=== PATIENT | female | born 1965 | race Caucasian/White ===

== ENCOUNTER 2017-08-08 16:26 | Observation (INO) | payer OTHER ==
[~2017-08-08] VITALS: Ht 167.6 cm; Wt 85.0 kg
[~2017-08-08 16:26] MED LIST: ASPI81TA28 PO; BIOTCAP2 PO; CHOL1000 PO; LEVO100T84 PO; MAGN250T3 PO; MULT-506 PO; SPIR100T PO
[2017-08-08] MEDS ORDERED: ASPIRIN 81 MG CHEW PO STA (16:53)
[2017-08-08] MEDS ORDERED: NITROGLYCERIN 0.4 MG SL PER TAB CHARGE SL PRN ×2 (17:00→19:30)
[2017-08-08 17:03] LABS: HEMATOCRIT 43.4 % (37-47); MEAN CORPUSCULAR HEMOGLOBIN 33.5 pg (25-34); MEAN CORPUSCULAR HGB CONC 35.3 g/dl (32-36); MEAN PLATELET VOLUME 9.8 fL (7.4-10.4); PLATELET COUNT 269 K/uL (130-400); RED BLOOD COUNT 4.57 M/uL (4.2-5.4); WHITE BLOOD COUNT 8.86 K/uL (4.8-10.8)
[2017-08-08] MEDS ORDERED: CLIN150C PO (17:03)
[2017-08-08] MEDS ORDERED: BIOT1TAB7 PO (17:03)
[2017-08-08] MEDS ORDERED: MAGN1CAP2 PO (17:03)
[2017-08-08] MEDS ORDERED: LEVO100T7 PO (17:03)
[2017-08-08 17:28] LABS: BLOOD UREA NITROGEN 26 mg/dl (7-18); BUN/CREATININE RATIO 21.8 (10-20); CALCIUM 9.7 mg/dl (8.5-10.1); CARBON DIOXIDE 31 mmol/L (21-32); CHLORIDE 101 mmol/L (98-107); GLUCOSE 95 mg/dl (70-99); POTASSIUM 4.1 mmol/L (3.5-5.1); SODIUM 137 mmol/L (136-145)
[2017-08-08] MEDS ORDERED: OPTIRAY 320 IV PRN (17:30)
[2017-08-08 17:33] LABS: CKMB/CK RATIO 0.8 (0-3.0)
--- NOTE | 2017-08-08 18:14 | DIAGNOSTIC IMAGING REPORT ---
(CHEST FOR PE) ANGIO WITH CLINICAL HISTORY: 52 years-old Female presenting with shortness of breath, chest pain, history of blood clot in the right lower leg, recent travel history. TECHNIQUE: Multidetector CT angiography of the chest was performed after administration of intravenous contrast. 3-D volumetric and/or maximum intensity projection (MIP) images were subsequently reconstructed for review. IV contrast: 90 mL of Optiray 320. A dose lowering technique was used consistent with the principles of ALARA (as low as reasonably achievable). COMPARISON: None. CT DOSE (mGy.cm): The estimated cumulative dose is 265.67 mGy.cm. FINDINGS: Cover Cutter topogram: Unremarkable. Pulmonary vasculature: The study is adequate for assessment of the pulmonary vascular tree. No filling defect within the pulmonary arteries to suggest embolus. Main pulmonary artery is not enlarged. No flattening of the interventricular septum. No intracardiac intracardiac filling defect. No reflux of contrast into the hepatic veins. Remaining chest: On soft tissue windows, postsurgical changes of right thyroid lobectomy. No axillary, supraclavicular, hilar, or mediastinal lymphadenopathy. Normal aorta. Normal heart size. No pericardial or pleural effusion. Cholecystectomy clips noted. On lung windows, minimal dependent changes likely atelectasis. Solid subpleural 3 mm nodule in the right middle lobe (series 2 image 42). Airways patent. On bone windows, mild degenerative changes of the thoracic spine. IMPRESSION: 1. No evidence of pulmonary embolus. No acute intrathoracic pathology. 2. Solitary 3 mm solid pulmonary nodule in the right middle lobe. Follow-up per Adelina Society 2017 recommendations below. Please refer to below summary of Fleischner Society 2017 recommendations for follow-up of incidental CT nodules (H Nori et al. Guidelines for management of incidental pulmonary nodules detected on CT images: From the Fleischner Society 2017. Radiology 2017; 284: 228-243.) SOLID NODULES Single nodule; size < 6 mm * Low risk patients: No routine follow-up * High risk patients: Optional CT at 12 months Single nodule; size 6-8 mm * Low risk patients: CT at 6-12 months, then consider CT at 18-24 months * High risk patients: CT at 6-12 months, then at 18-24 months Single nodule; size > 8 mm * Either low or high risk patients: Considered CT at 3 months, PET/CT, or tissue sampling Multiple nodules; size < 6 mm * Low risk patients: No routine follow up * High risk patients: Optional CT at 12 months Multiple nodules; size 6-8 mm * Low risk patients: CT at 3-6 months, then consider CT at 18-24 months * High risk patients: CT at 3-6 months, then at 18-24 months Multiple nodules; size > 8 mm * Low risk patients: CT at 3-6 months, then consider at 18-24 months * High risk patients: CT at 3-6 months, then at 18-24 months Note: These guidelines apply to incidental nodules. These guidelines do not apply to patients younger than 35 years, immunocompromised patients, or patients with cancer. * Low risk patients: Minimal or absent history of smoking and/or other known risk factors * High risk patients: History of smoking, exposure to other carcinogens, emphysema, fibrosis, upper lobe location, family history of lung cancer, etc. * If a nodule up to 8 mm is partly solid or is ground glass, further follow-up is required after 24 months to exclude possible slow growing adenocarcinoma. SUBSOLID NODULES Single ground-glass nodule * Nodule size < 6 mm: No routine follow-up * Nodule size > or = 6 mm: CT at 6-12 months to confirm persistence, then CT every 2 years until 5 years Single part-solid nodule * Nodule size < 6 mm: No routine follow-up * Nodules size > or = 6 mm: CT at 3-6 months to confirm persistence. If unchanged and solid component remains < 6 mm, annual CT should be performed for 5 years Multiple nodules * Nodule size < 6 mm: CT at 3-6 months. If stable, consider CT at 2 and 4 years. * Nodules size > or = 6 mm: CT at 3-6 months. Subsequent management based on the most suspicious nodule(s) Electronically signed by: Phillip Hutson M.D. 08/08/2017 6:12 PM Dictated Date/Time: 08/08/2017 6:07 PM
--- NOTE | 2017-08-08 18:38 | DIAGNOSTIC IMAGING REPORT ---
CHEST ONE VIEW PORTABLE CLINICAL HISTORY: 52 years-old Female presenting with Chest Pain. TECHNIQUE: Portable upright AP view of the chest was obtained. COMPARISON: None. FINDINGS: Cardiomediastinal silhouette normal. Lungs and pleural spaces clear. Osseous structures normal. Upper abdomen normal. IMPRESSION: 1. No acute cardiopulmonary disease. Electronically signed by: Phillip Hutson M.D. 08/08/2017 6:36 PM Dictated Date/Time: 08/08/2017 6:36 PM
[2017-08-08 18:44] LABS: BASO % 0.3 %; BASO ABS # 0.03 K/uL (0-0.2); EOS % 4.5 %; IG% 0.2 %; LYMPH ABS # 2.83 K/uL (1.2-3.4); MONO % 9.5 %; NEUT % 54.5 %
[2017-08-08 18:59] LABS: COMPLETE YES
[2017-08-08 19:27] VITALS: Ht 167.6 cm; Wt 85.0 kg
[2017-08-08] MEDS ORDERED: POLYETHYLENE (MIRALAX) 17 GM PACK PO PRN (19:30)
[2017-08-08] MEDS ORDERED: ACETAMINOPHEN 325 MG TAB PO PRN (19:30)
[2017-08-08] MEDS ORDERED: ONDANSETRON INJ 2 MG/ML 2 ML VIAL IV PRN (19:30)
[2017-08-08] MEDS ORDERED: MoRPHine SULFATE 2 MG/ML CARP IV PRN (19:30)
[2017-08-08] MEDS ORDERED: MoRPHine SULFATE 2 MG/ML CARP IV STA (20:14)
--- NOTE | 2017-08-08 20:27 | History and Physical ---
History & Physical Date & Time of Service: Aug 08, 2017 at 20:16 Chief Complaint: Short Of Breath, Chest Pain Primary Care Physician: Landry Leonardo M.D. History of Present Illness Source: patient, clinic records, hospital records 52 yo F presents with chest pain that is worse with taking a deep breath. The pain has been intermittent since Fri morning and started after some nausea that she had. The pain appears to have gotten somewhat worse but doesn't seem to change with food, changes in position, or exertion. She has not been limited in her activities, but has noted that she has not been doing as much as she normally does. She describes the pain as sharp and located behind her R and L clavicles with the L side moving through to her back. She has had some associated diaphoresis with the pain and the nausea has not persisted but was there initially. She also reports some intermittent lightheadedness. She takes an aspirin daily. She does not have a history of tobacco use or hypertension; she takes spironolactone for control of hirsutism. She has a family history of her father having his first MO at age 50 yrs and dying from an MO at 62 yo. She denies a h/o chest pain except for once last year--an EKG was done at the time. She has never had a stress test in the past. She reports having pain from a toothache and was put on Cleocin starting Thurs. She states she has some pain from the toothache but denies fevers and chills. She takes Motrin PRN. There are plans to have the tooth pulled later this week. CTA was negative for PE in the ER. Past Medical/Surgical History Medical Problems: (1) DEPRESSIVE DISORDER NEC Status: Chronic (2) Hirsutism Status: Chronic (3) OVARIAN CYST NEC/NOS Status: Chronic Surgical Problems: (1) H/O tubal ligation Status: Chronic (2) S/P appy Status: Chronic (3) S/P cholecystectomy Status: Chronic Family History FH: cancer FH: gallbladder disease FH: heart disease FH: hypertension FHx: diabetes mellitus Social History Smoking Status: Never Smoker Smokeless Tobacco Use: No Alcohol Use: socially Drug Use: none Marital Status: in relationship Housing status: lives with significant other Occupational Status: employed Immunizations History of Influenza Vaccine: No History of Tetanus Vaccine?: Yes History of Pneumococcal: No History of Hepatitis B Vaccine: Yes Multi-Drug Resistant Organisms History of MDRO: No Allergies Coded Allergies: Penicillins (Verified Allergy, Unknown, FEVER, 05/13/16) Sulfa Antibiotics (Verified Allergy, Unknown, FEVER, 05/13/16) Home Medications Scheduled Aspirin (Aspirin Ec), 81 MG PO QAM Biotin (Biotin Maximum Strength), 10,000 MCG PO QAM Cholecalciferol (Vitamin D3), 1,000 INTER.UNIT PO QAM Clindamycin Hcl (Cleocin), 150 MG PO QID Levothyroxine Sodium (Levothyroxine Sodium), 100 MG PO QAM Magnesium Oxide (Mg Supplement (Magnesium), 1,200 MG PO QAM Multivitamin (Multivitamin), 1 TAB PO QAM Spironolactone (Aldactone), 100 MG PO QAM Review of Systems At least ten systems were reviewed and negative except as indicated in HPI. Physical Exam Vital Signs Date Time Temp Pulse Resp B/P (MAP) Pulse Ox O2 Delivery O2 Flow Rate FiO2 08/08/17 19:27 Room Air 08/08/17 19:12 86 18 113/61 99 Room Air 08/08/17 18:04 78 18 113/63 98 Room Air 08/08/17 17:20 74 08/08/17 17:03 93 20 114/69 08/08/17 16:33 36.7 86 20 121/65 100 Room Air General Appearance: WD/WN, no apparent distress Head: normocephalic, atraumatic Eyes: normal inspection, PERRL, sclerae normal ENT: hearing grossly normal, pharynx normal Neck: supple, no adenopathy, no JVD, trachea midline Respiratory/Chest: lungs clear, normal breath sounds, no respiratory distress, no accessory muscle use, + pertinent finding (mild TTP on R anterior chest wall) Cardiovascular: regular rate, rhythm, no edema, no gallop, no JVD, no murmur, normal peripheral pulses Abdomen/GI: normal bowel sounds, non tender, soft Back: normal inspection Extremities/Musculoskelatal: normal inspection Neurologic/Psych: no motor/sensory deficits, alert, normal mood/affect, oriented x 3 Skin: normal color, warm/dry, no rash Diagnostics Laboratory Results 08/08/17 16:50 Red Blood Count 4.57, Mean Corpuscular Volume 95.0, Mean Corpuscular Hemoglobin 33.5, Mean Corpuscular Hemoglobin Concent 35.3, Mean Platelet Volume 9.8, Neutrophils (%) (Auto) 54.5, Lymphocytes (%) (Auto) 31.0, Monocytes (%) (Auto) 9.5, Eosinophils (%) (Auto) 4.5, Basophils (%) (Auto) 0.3, Neutrophils # (Auto) 4.96, Lymphocytes # (Auto) 2.83, Monocytes # (Auto) 0.87, Eosinophils # (Auto) 0.41, Basophils # (Auto) 0.03 08/08/17 16:50 Test 08/08/17 16:50 08/08/17 20:14 White Blood Count 8.86 K/uL (4.8-10.8) Red Blood Count 4.57 M/uL (4.2-5.4) Hemoglobin 15.3 g/dL (12.0-16.0) Hematocrit 43.4 % (37-47) Mean Corpuscular Volume 95.0 fL (80-100) Mean Corpuscular Hemoglobin 33.5 pg (25-34) Mean Corpuscular Hemoglobin Concent 35.3 g/dl (32-36) Platelet Count 269 K/uL (130-400) Mean Platelet Volume 9.8 fL (7.4-10.4) Neutrophils (%) (Auto) 54.5 % Lymphocytes (%) (Auto) 31.0 % Monocytes (%) (Auto) 9.5 % Eosinophils (%) (Auto) 4.5 % Basophils (%) (Auto) 0.3 % Neutrophils # (Auto) 4.96 K/uL (1.4-6.5) Lymphocytes # (Auto) 2.83 K/uL (1.2-3.4) Monocytes # (Auto) 0.87 K/uL (0.11-0.59) Eosinophils # (Auto) 0.41 K/uL (0-0.5) Basophils # (Auto) 0.03 K/uL (0-0.2) RDW Standard Deviation 44.2 fL (36.4-46.3) RDW Coefficient of Variation 12.8 % (11.5-14.5) Immature Granulocyte % (Auto) 0.2 % Immature Granulocyte # (Auto) 0.02 K/uL (0.00-0.02) Red Blood Cell Morphology Unremarkable Anion Gap 5.0 mmol/L (3-11) Est Creatinine Clear Calc Drug Dose 58.8 ml/min Estimated GFR () 59.3 Estimated GFR (Non- 51.2 BUN/Creatinine Ratio 21.8 (10-20) Calcium Level 9.7 mg/dl (8.5-10.1) Total Creatine Kinase 98 U/L (26-192) Creatine Kinase MB 0.8 ng/ml (0.5-3.6) Creatine Kinase MB Ratio 0.8 (0-3.0) Troponin I < 0.015 ng/ml (0-0.045) Results Past 24 Hours Test 08/08/17 16:50 08/08/17 20:14 Range/Units White Blood Count 8.86 4.8-10.8 K/uL Red Blood Count 4.57 4.2-5.4 M/uL Hemoglobin 15.3 12.0-16.0 g/dL Hematocrit 43.4 37-47 % Mean Corpuscular Volume 95.0 80-100 fL Mean Corpuscular Hemoglobin 33.5 25-34 pg Mean Corpuscular Hemoglobin Concent 35.3 32-36 g/dl Platelet Count 269 130-400 K/uL Mean Platelet Volume 9.8 7.4-10.4 fL Neutrophils (%) (Auto) 54.5 % Lymphocytes (%) (Auto) 31.0 % Monocytes (%) (Auto) 9.5 % Eosinophils (%) (Auto) 4.5 % Basophils (%) (Auto) 0.3 % Neutrophils # (Auto) 4.96 1.4-6.5 K/uL Lymphocytes # (Auto) 2.83 1.2-3.4 K/uL Monocytes # (Auto) 0.87 0.11-0.59 K/uL Eosinophils # (Auto) 0.41 0-0.5 K/uL Basophils # (Auto) 0.03 0-0.2 K/uL RDW Standard Deviation 44.2 36.4-46.3 fL RDW Coefficient of Variation 12.8 11.5-14.5 % Immature Granulocyte % (Auto) 0.2 % Immature Granulocyte # (Auto) 0.02 0.00-0.02 K/uL Red Blood Cell Morphology Unremarkable Sodium Level 137 136-145 mmol/L Potassium Level 4.1 3.5-5.1 mmol/L Chloride Level 101 98-107 mmol/L Carbon Dioxide Level 31 21-32 mmol/L Anion Gap 5.0 3-11 mmol/L Blood Urea Nitrogen 26 7-18 mg/dl Creatinine 1.20 0.60-1.20 mg/dl Est Creatinine Clear Calc Drug Dose 58.8 ml/min Estimated GFR () 59.3 Estimated GFR (Non- 51.2 BUN/Creatinine Ratio 21.8 10-20 Random Glucose 95 70-99 mg/dl Calcium Level 9.7 8.5-10.1 mg/dl Total Creatine Kinase 98 26-192 U/L Creatine Kinase MB 0.8 0.5-3.6 ng/ml Creatine Kinase MB Ratio 0.8 0-3.0 Troponin I < 0.015 0-0.045 ng/ml Diagnostic Radiology CHEST ONE VIEW PORTABLE CLINICAL HISTORY: 52 years-old Female presenting with Chest Pain. TECHNIQUE: Portable upright AP view of the chest was obtained. COMPARISON: None. FINDINGS: Cardiomediastinal silhouette normal. Lungs and pleural spaces clear. Osseous structures normal. Upper abdomen normal. IMPRESSION: 1. No acute cardiopulmonary disease. (CHEST FOR PE) ANGIO WITH CLINICAL HISTORY: 52 years-old Female presenting with shortness of breath, chest pain, history of blood clot in the right lower leg, recent travel history. TECHNIQUE: Multidetector CT angiography of the chest was performed after administration of intravenous contrast. 3-D volumetric and/or maximum intensity projection (MIP) images were subsequently reconstructed for review. IV contrast: 90 mL of Optiray 320. A dose lowering technique was used consistent with the principles of ALARA (as low as reasonably achievable). COMPARISON: None. CT DOSE (mGy.cm): The estimated cumulative dose is 265.67 mGy.cm. FINDINGS: Public Policy Professor topogram: Unremarkable. Pulmonary vasculature: The study is adequate for assessment of the pulmonary vascular tree. No filling defect within the pulmonary arteries to suggest embolus. Main pulmonary artery is not enlarged. No flattening of the interventricular septum. No intracardiac intracardiac filling defect. No reflux of contrast into the hepatic veins. Remaining chest: On soft tissue windows, postsurgical changes of right thyroid lobectomy. No axillary, supraclavicular, hilar, or mediastinal lymphadenopathy. Normal aorta. Normal heart size. No pericardial or pleural effusion. Cholecystectomy clips noted. On lung windows, minimal dependent changes likely atelectasis. Solid subpleural 3 mm nodule in the right middle lobe (series 2 image 42). Airways patent. On bone windows, mild degenerative changes of the thoracic spine. IMPRESSION: 1. No evidence of pulmonary embolus. No acute intrathoracic pathology. 2. Solitary 3 mm solid pulmonary nodule in the right middle lobe. Follow-up per Adelina Society 2017 recommendations below. EKG SR 95, no ST changes. Impression Assessment and Plan 52 yo F with no h/o CAD presents with chest pain since wednesday (2 dys) that is worse with taking a deep breath. 1. chest pain-risk factors for CAD include family history. ASA given in ER, nitro didn't help much. Morphine helped her breathe somewhat better. Possible but less likely there is any bacterial endocarditis from the tooth infection in the setting of no fevers, chills, ORELLANA or murmur on exam. However, a stress echo with resting images is considered. Cardiology consulted for assistance with this and risk stratification of CAD. 2. Pulm nodule-3mm in lifelong non-smoker. Very low risk, would either not follow it up or could opt to get a CT scan in 12 months per criteria. 3. Hypothyroidism-cont home Synthroid 4. Dental infection-patient remains on cleocin with plans for pulling the tooth later this week. DVT proph: Lovenox Full Code Dispo-tele Amber Coles DO [facility] Hospitalist Level of Care Telemetry Advanced Directives Existing Living Will: No Existing Power of Coil Shaper: No Resuscitation Status FULL RESUSCITATION VTE Prophylaxis VTE Risk Assessment Done? Y/N: Yes Risk Level: Moderate Given or contraindicated: Enoxaparin (Lovenox)SQ
[2017-08-08 20:47] LABS: PROTHROMBIN TIME (PATIENT) 10.6 SECONDS (9.0-12.0)
[2017-08-08 21:06] VITALS: BP 128/79; PULSE 70; TEMP 36.7; O2SAT 98
[2017-08-08] MEDS ORDERED: IV FLUIDS COMPLETED PRN (21:15)
[2017-08-08] MEDS: CLINDAMYCIN HCL 150 MG CAP PO SCH (21:41)
--- NOTE | 2017-08-08 22:06 | EMERGENCY ROOM VISIT NOTE ---
History Report prepared by Ari: Cliff Arriola Under the Supervision of: Dr. Raffaele Antonio D.O. First contact with patient: 16:46 Chief Complaint: CHEST PAIN Stated Complaint: SHORT OF BREATH, CHEST PAIN History of Present Illness The patient is a 52 year old female who presents to the Emergency Room with complaints of intermittent chest pain that started two days ago. She describes her pain as a sharp sensation that radiates to her arm. shoulder, and jaw intermittently. The patient admits that her pain is worsened with exertion. The patient states that she woke up two days ago and was experiencing nausea and dizziness. She reports that she then started to experience shortness of breath. The patient states that every time she tried to take a deep breath, she noticed she would experience chest pain. She reports that her chest pain is mostly with taking a deep breath but admits that it can be present without a deep breath at times. The patient states that her chest pain started again today when she woke up at 0645. She admits to a history of a cholecystectomy and blood clots that she takes blood thinners for. The patient denies a history of heart disease, asthma, COPD, hyperlipidemia, hypertension, and hyperlipidemia. She reports that she is currently on an antibiotic for a tooth infection. The patient denies recent travel, taking aspirin, cough, and sore throat. Source of History: patient Onset: two days ago Position: chest Quality: sharp Timing: intermittent Modifying Factors (Worsening): exertion, breathing Associated Symptoms: + SOB, + nausea, No sorethroat, No cough Review of Systems See HPI for pertinent positives & negatives. A total of 10 systems reviewed and were otherwise negative. Past Medical & Surgical Medical Problems: (1) Chest pain (2) DEPRESSIVE DISORDER NEC (3) OVARIAN CYST NEC/NOS Family History FH: cancer FH: gallbladder disease FH: heart disease FH: hypertension FHx: diabetes mellitus Social History Smoking Status: Never Smoker Alcohol Use: occasionally Drug Use: none Housing Status: lives with family Occupation Status: employed Current/Historical Medications Scheduled Aspirin (Aspirin Ec), 81 MG PO QAM Biotin (Biotin Maximum Strength), 10,000 MCG PO QAM Cholecalciferol (Vitamin D3), 1,000 INTER.UNIT PO QAM Clindamycin Hcl (Cleocin), 150 MG PO QID Levothyroxine Sodium (Levothyroxine Sodium), 100 MG PO QAM Magnesium Oxide (Mg Supplement (Magnesium), 1,200 MG PO QAM Multivitamin (Multivitamin), 1 TAB PO QAM Spironolactone (Aldactone), 100 MG PO QAM Allergies Coded Allergies: Penicillins (Verified Allergy, Unknown, FEVER, 05/13/16) Sulfa Antibiotics (Verified Allergy, Unknown, FEVER, 05/13/16) Physical Exam Vital Signs Date Time Temp Pulse Resp B/P (MAP) Pulse Ox O2 Delivery O2 Flow Rate FiO2 08/08/17 19:27 Room Air 08/08/17 19:12 86 18 113/61 99 Room Air 08/08/17 18:04 78 18 113/63 98 Room Air 08/08/17 17:20 74 08/08/17 17:03 93 20 114/69 08/08/17 16:33 36.7 86 20 121/65 100 Room Air Physical Exam GENERAL: sitting up in bed, anxious, no acute distress, non toxic. EYE EXAM: normal conjunctiva. OROPHARYNX: no exudate, no erythema, lips, buccal mucosa, and tongue normal and mucous membranes are moist NECK: supple, no nuchal rigidity, no adenopathy, non-tender LUNGS: Clear to auscultation. Normal chest wall mechanics HEART: no murmurs, S1 normal and S2 normal ABDOMEN: abdomen soft, non-tender, normo-active bowel sounds, no masses, no rebound or guarding. BACK: Back is symmetrical on inspection and there is no deformity, no midline tenderness, no CVA tenderness. SKIN: no rashes and no bruising UPPER EXTREMITIES: upper extremities are grossly normal. Pulses are equal bilaterally. LOWER EXTREMITIES: No pitting edema. Calves are equal bilaterally. NEURO EXAM: Normal sensorium, cranial nerves II-XII grossly intact, normal speech, no gross weakness of arms, no gross weakness of legs. Medical Decision & Procedures ER Provider Diagnostic Interpretation: Radiology results as stated below per my review and the radiologist's interpretation: (CHEST FOR PE) ANGIO WITH CLINICAL HISTORY: 52 years-old Female presenting with shortness of breath, chest pain, history of blood clot in the right lower leg, recent travel history. TECHNIQUE: Multidetector CT angiography of the chest was performed after administration of intravenous contrast. 3-D volumetric and/or maximum intensity projection (MIP) images were subsequently reconstructed for review. IV contrast: 90 mL of Optiray 320. A dose lowering technique was used consistent with the principles of ALARA (as low as reasonably achievable). COMPARISON: None. CT DOSE (mGy.cm): The estimated cumulative dose is 265.67 mGy.cm. FINDINGS: Diabetes Nurse topogram: Unremarkable. Pulmonary vasculature: The study is adequate for assessment of the pulmonary vascular tree. No filling defect within the pulmonary arteries to suggest embolus. Main pulmonary artery is not enlarged. No flattening of the interventricular septum. No intracardiac intracardiac filling defect. No reflux of contrast into the hepatic veins. Remaining chest: On soft tissue windows, postsurgical changes of right thyroid lobectomy. No axillary, supraclavicular, hilar, or mediastinal lymphadenopathy. Normal aorta. Normal heart size. No pericardial or pleural effusion. Cholecystectomy clips noted. On lung windows, minimal dependent changes likely atelectasis. Solid subpleural 3 mm nodule in the right middle lobe (series 2 image 42). Airways patent. On bone windows, mild degenerative changes of the thoracic spine. IMPRESSION: 1. No evidence of pulmonary embolus. No acute intrathoracic pathology. 2. Solitary 3 mm solid pulmonary nodule in the right middle lobe. Follow-up per Adelina Society 2017 recommendations below. Please refer to below summary of Fleischner Society 2017 recommendations for follow-up of incidental CT nodules (H Nori et al. Guidelines for management of incidental pulmonary nodules detected on CT images: From the Fleischner Society 2017. Radiology 2017; 284: 228-243.) SOLID NODULES Single nodule; size < 6 mm * Low risk patients: No routine follow-up * High risk patients: Optional CT at 12 months Single nodule; size 6-8 mm * Low risk patients: CT at 6-12 months, then consider CT at 18-24 months * High risk patients: CT at 6-12 months, then at 18-24 months Single nodule; size > 8 mm * Either low or high risk patients: Considered CT at 3 months, PET/CT, or tissue sampling Multiple nodules; size < 6 mm * Low risk patients: No routine follow up * High risk patients: Optional CT at 12 months Multiple nodules; size 6-8 mm * Low risk patients: CT at 3-6 months, then consider CT at 18-24 months * High risk patients: CT at 3-6 months, then at 18-24 months Multiple nodules; size > 8 mm * Low risk patients: CT at 3-6 months, then consider at 18-24 months * High risk patients: CT at 3-6 months, then at 18-24 months Note: These guidelines apply to incidental nodules. These guidelines do not apply to patients younger than 35 years, immunocompromised patients, or patients with cancer. * Low risk patients: Minimal or absent history of smoking and/or other known risk factors * High risk patients: History of smoking, exposure to other carcinogens, emphysema, fibrosis, upper lobe location, family history of lung cancer, etc. * If a nodule up to 8 mm is partly solid or is ground glass, further follow-up is required after 24 months to exclude possible slow growing adenocarcinoma. SUBSOLID NODULES Single ground-glass nodule * Nodule size < 6 mm: No routine follow-up * Nodule size > or = 6 mm: CT at 6-12 months to confirm persistence, then CT every 2 years until 5 years Single part-solid nodule * Nodule size < 6 mm: No routine follow-up * Nodules size > or = 6 mm: CT at 3-6 months to confirm persistence. If unchanged and solid component remains < 6 mm, annual CT should be performed for 5 years Multiple nodules * Nodule size < 6 mm: CT at 3-6 months. If stable, consider CT at 2 and 4 years. * Nodules size > or = 6 mm: CT at 3-6 months. Subsequent management based on the most suspicious nodule(s) Electronically signed by: Phillip Hutson M.D. 08/08/2017 6:12 PM Dictated Date/Time: 08/08/2017 6:07 PM CHEST ONE VIEW PORTABLE CLINICAL HISTORY: 52 years-old Female presenting with Chest Pain. TECHNIQUE: Portable upright AP view of the chest was obtained. COMPARISON: None. FINDINGS: Cardiomediastinal silhouette normal. Lungs and pleural spaces clear. Osseous structures normal. Upper abdomen normal. IMPRESSION: 1. No acute cardiopulmonary disease. Electronically signed by: Phillip Hutson M.D. 08/08/2017 6:36 PM Dictated Date/Time: 08/08/2017 6:36 PM Laboratory Results 08/08/17 16:50 Red Blood Count 4.57, Mean Corpuscular Volume 95.0, Mean Corpuscular Hemoglobin 33.5, Mean Corpuscular Hemoglobin Concent 35.3, Mean Platelet Volume 9.8, Neutrophils (%) (Auto) 54.5, Lymphocytes (%) (Auto) 31.0, Monocytes (%) (Auto) 9.5, Eosinophils (%) (Auto) 4.5, Basophils (%) (Auto) 0.3, Neutrophils # (Auto) 4.96, Lymphocytes # (Auto) 2.83, Monocytes # (Auto) 0.87, Eosinophils # (Auto) 0.41, Basophils # (Auto) 0.03 08/08/17 16:50 Test 08/08/17 16:50 White Blood Count 8.86 K/uL (4.8-10.8) Red Blood Count 4.57 M/uL (4.2-5.4) Hemoglobin 15.3 g/dL (12.0-16.0) Hematocrit 43.4 % (37-47) Mean Corpuscular Volume 95.0 fL (80-100) Mean Corpuscular Hemoglobin 33.5 pg (25-34) Mean Corpuscular Hemoglobin Concent 35.3 g/dl (32-36) Platelet Count 269 K/uL (130-400) Mean Platelet Volume 9.8 fL (7.4-10.4) Neutrophils (%) (Auto) 54.5 % Lymphocytes (%) (Auto) 31.0 % Monocytes (%) (Auto) 9.5 % Eosinophils (%) (Auto) 4.5 % Basophils (%) (Auto) 0.3 % Neutrophils # (Auto) 4.96 K/uL (1.4-6.5) Lymphocytes # (Auto) 2.83 K/uL (1.2-3.4) Monocytes # (Auto) 0.87 K/uL (0.11-0.59) Eosinophils # (Auto) 0.41 K/uL (0-0.5) Basophils # (Auto) 0.03 K/uL (0-0.2) RDW Standard Deviation 44.2 fL (36.4-46.3) RDW Coefficient of Variation 12.8 % (11.5-14.5) Immature Granulocyte % (Auto) 0.2 % Immature Granulocyte # (Auto) 0.02 K/uL (0.00-0.02) Red Blood Cell Morphology Unremarkable Prothrombin Time 10.6 SECONDS (9.0-12.0) Prothromb Time International Ratio 1.0 (0.9-1.1) Anion Gap 5.0 mmol/L (3-11) Est Creatinine Clear Calc Drug Dose 58.8 ml/min Estimated GFR () 59.3 Estimated GFR (Non- 51.2 BUN/Creatinine Ratio 21.8 (10-20) Calcium Level 9.7 mg/dl (8.5-10.1) Total Creatine Kinase 98 U/L (26-192) Creatine Kinase MB 0.8 ng/ml (0.5-3.6) Creatine Kinase MB Ratio 0.8 (0-3.0) Troponin I < 0.015 ng/ml (0-0.045) Hepatitis C Antibody Screen NEG (NEG) Laboratory results per my review. Medications Administered Medications (Trade) Dose Ordered Sig/Nicolle Route Start Time Stop Time Status Last Admin Dose Admin Aspirin (Aspirin Chew) 324 mg NOW STAT PO 08/08/17 16:53 08/08/17 16:56 DC 08/08/17 17:02 324 MG Nitroglycerin (Nitrostat Tab) 0.4 mg Q5M PRN SL 08/08/17 17:00 08/08/17 20:35 DC 08/08/17 17:02 0.4 MG ECG Indication: chest pain Rate (beats per minute): 95 Rhythm: sinus rhythm Findings: no ectopy, other (Normal axis) ED Course ED COURSE: Vital signs were reviewed and showed normal The patients medical record was reviewed The above diagnostic studies were performed and reviewed. ED treatments and interventions as stated above. 1647: The patient was evaluated in room B12B. A complete history and physical examination was performed. 1818: I reevaluated the patinet and she reports that her chest pain is gone after the Nitroglycerin and her SOB is improved. 1840: I discussed the patients case with Dr. Castillo, [facility] Hospitalist. He understands the patients condition and agrees to accept the patient. The patient will be further evaluated. Medical Decision Differential diagnoses includes but is not limited to acute coronary syndrome, myocardial infarction, pericarditis, pulmonary embolus, aortic dissection, pneumonia, pneumothorax, musculoskeletal, shingles, esophageal. Patient is a 52-year-old female who presents to ER for intermittent chest pain and shortness of breath which has been present since this past Wednesday. She notes it is worse with exertion. Chest pain does have a pleuritic component. Previous history of PEs. CBC all BMP, LFTs and troponin was negative. As she was at a higher risk CT PE was performed which showed a pulmonary nodule but no clots. Patient was updated regards to this. Chest pain resolved with nitroglycerin. Shortness of breath has improved significantly. Patient was updated at bedside and admitted to internal medicine for a chest pain rule out. Medication Reconcilliation Current Medication List: was personally reviewed by me Blood Pressure Screening Patient's blood pressure: Normal blood pressure Consults Time Called: 1839 Consulting Physician: Dr. Castillo, [facility] Hospitalist Returned Call: 1839 I discussed the patients case with Dr. Castillo [facility] Hospitalist. He understands the patients condition and agrees to accept the patient. The patient will be further evaluated. Impression Primary Impression: Chest pain Additional Impression: Pulmonary nodule Scribe Attestation The scribe's documentation has been prepared under my direction and personally reviewed by me in its entirety. I confirm that the note above accurately reflects all work, treatment, procedures, and medical decision making performed by me. Departure Information Dispostion Being Evaluated By Hospitalist Referrals Landry Leonardo M.D. (PCP) Patient Instructions My [facility] Problem Qualifiers Primary Impression: Chest pain Chest pain type: unspecified Qualified Codes: R07.9 - Chest pain, unspecified
[2017-08-09] VITALS: O2SAT 95
[2017-08-09 00:13] VITALS: BP 93/59; PULSE 73; TEMP 36.8; O2SAT 94
[2017-08-09 04:47] VITALS: BP 99/63; PULSE 65; TEMP 36.9; O2SAT 97
[2017-08-09] MEDS ORDERED: LEVOTHYROXINE 100 MCG TAB PO SCH (06:30)
[2017-08-09 07:01] LABS: CKMB/CK RATIO 1.4 (0-3.0)
[2017-08-09 07:27] VITALS: BP 114/70; PULSE 75; TEMP 36.7; O2SAT 97
[2017-08-09] MEDS: CLINDAMYCIN HCL 150 MG CAP PO SCH ×3 (07:40→16:29)
[2017-08-09] MEDS ORDERED: SPIRONOLACTONE 100 MG TAB PO SCH (09:00)
[2017-08-09] MEDS ORDERED: CHOLECALCIFEROL 1000 INTER.UNIT TAB PO SCH (09:00)
[2017-08-09] MEDS ORDERED: ENOXAPARIN 40 MG/0.4 ML SYR SC SCH (09:00)
[2017-08-09] MEDS ORDERED: MULTIVITAMIN TAB PO SCH (09:00)
[2017-08-09] MEDS ORDERED: BIOTIN 10000 MCG PO SCH (09:00)
[2017-08-09] MEDS ORDERED: MAGNESIUM OXIDE 400 MG TAB PO SCH (09:00)
[2017-08-09] MEDS ORDERED: ASPIRIN 81 MG ECTAB PO SCH (09:00)
[2017-08-09 11:29] VITALS: BP 100/66; PULSE 68; TEMP 36.8; O2SAT 95
[2017-08-09 12:23] LABS: CKMB/CK RATIO 1.2 (0-3.0)
--- NOTE | 2017-08-09 16:43 | Progress Note ---
Internal Med Progress Note Date of Service: Aug 09, 2017. Provider Documentation: SUBJECTIVE: Patient seen and evaluated at bedside. had negative stress test. patient denies chest pain or shortness of breath. OBJECTIVE: Exam: General- no acute distress Eyes- EOMI ENT- no oral or nasal exudates Neck- midline trachea, no JVD Lungs-clear to auscultation bilaterally, no wheezing Heart- regular rate, no murmurs appreciated Abdomen- soft, nontender, + bowel sounds Extremities- no edema Neuro- alert and oriented x 3, no gross oral deficits ASSESSMENT & PLAN: CXR Cardiomediastinal silhouette normal. Lungs and pleural spaces clear. Osseous structures normal. Upper abdomen normal. CTA chest Building Surveyor topogram: Unremarkable. Pulmonary vasculature: The study is adequate for assessment of the pulmonary vascular tree. No filling defect within the pulmonary arteries to suggest embolus. Main pulmonary artery is not enlarged. No flattening of the interventricular septum. No intracardiac intracardiac filling defect. No reflux of contrast into the hepatic veins. Remaining chest: On soft tissue windows, postsurgical changes of right thyroid lobectomy. No axillary, supraclavicular, hilar, or mediastinal lymphadenopathy. Normal aorta. Normal heart size. No pericardial or pleural effusion. Cholecystectomy clips noted. On lung windows, minimal dependent changes likely atelectasis. Solid subpleural 3 mm nodule in the right middle lobe (series 2 image 42). Airways patent. On bone windows, mild degenerative changes of the thoracic spine. IMPRESSION: 1. No evidence of pulmonary embolus. No acute intrathoracic pathology. 2. Solitary 3 mm solid pulmonary nodule in the right middle lobe. Follow-up per Adelina Society 2017 recommendations below. Please refer to below summary of Fleischner Society 2017 recommendations for follow-up of incidental CT nodules (H Nori et al. Guidelines for management of incidental pulmonary nodules detected on CT images: From the Fleischner Society 2017. Radiology 2017; 284: 228-243.) SOLID NODULES Single nodule; size < 6 mm * Low risk patients: No routine follow-up * High risk patients: Optional CT at 12 months Single nodule; size 6-8 mm * Low risk patients: CT at 6-12 months, then consider CT at 18-24 months * High risk patients: CT at 6-12 months, then at 18-24 months Single nodule; size > 8 mm * Either low or high risk patients: Considered CT at 3 months, PET/CT, or tissue sampling Multiple nodules; size < 6 mm * Low risk patients: No routine follow up * High risk patients: Optional CT at 12 months Multiple nodules; size 6-8 mm * Low risk patients: CT at 3-6 months, then consider CT at 18-24 months * High risk patients: CT at 3-6 months, then at 18-24 months Multiple nodules; size > 8 mm * Low risk patients: CT at 3-6 months, then consider at 18-24 months * High risk patients: CT at 3-6 months, then at 18-24 months Note: These guidelines apply to incidental nodules. These guidelines do not apply to patients younger than 35 years, immunocompromised patients, or patients with cancer. * Low risk patients: Minimal or absent history of smoking and/or other known risk factors * High risk patients: History of smoking, exposure to other carcinogens, emphysema, fibrosis, upper lobe location, family history of lung cancer, etc. * If a nodule up to 8 mm is partly solid or is ground glass, further follow-up is required after 24 months to exclude possible slow growing adenocarcinoma. SUBSOLID NODULES Single ground-glass nodule * Nodule size < 6 mm: No routine follow-up * Nodule size > or = 6 mm: CT at 6-12 months to confirm persistence, then CT every 2 years until 5 years Single part-solid nodule * Nodule size < 6 mm: No routine follow-up * Nodules size > or = 6 mm: CT at 3-6 months to confirm persistence. If unchanged and solid component remains < 6 mm, annual CT should be performed for 5 years Multiple nodules * Nodule size < 6 mm: CT at 3-6 months. If stable, consider CT at 2 and 4 years. * Nodules size > or = 6 mm: CT at 3-6 months. Subsequent management based on the most suspicious nodule(s) Stress Test performed by cardiology 08/09/17 full report pending, was informed by cardiovascular technician conducting and interpreting stress test that there are no significant cardiac findings that will keep patient in hospital for further cardiac risk stratification. Diagnosis: 1) Atypical chest pain without cardiac causes; 2) Incidental Solitary 3 mm solid pulmonary nodule in the right middle lobe in a patient who denies smoking history Disposition: Discharge to home with no further changes to home medications. Follow up primary care 08/16/2017 3:00 PM Landry Leonardo MD Internal Medicine [facility]. Will defer to primary care doctor on whether patient requires repeat lung imaging in the future for the lung nodule. Vital Signs: Date Time Temp Pulse Resp B/P (MAP) Pulse Ox O2 Delivery O2 Flow Rate FiO2 08/09/17 12:00 Room Air 08/09/17 11:29 36.8 68 16 100/66 (77) 95 Room Air 08/09/17 08:00 Room Air 08/09/17 07:27 36.7 75 16 114/70 (85) 97 Room Air 08/09/17 04:47 36.9 65 16 99/63 (75) 97 Room Air 08/09/17 04:00 Room Air 08/09/17 00:13 36.8 73 16 93/59 (70) 94 Room Air 08/09/17 00:00 95 Room Air 08/09/17 00:00 Room Air 08/08/17 21:06 36.7 70 18 128/79 (95) 98 Room Air 08/08/17 20:30 76 18 85/46 97 Room Air 08/08/17 19:27 Room Air 08/08/17 19:12 86 18 113/61 99 Room Air 08/08/17 18:04 78 18 113/63 98 Room Air 08/08/17 17:20 74 08/08/17 17:03 93 20 114/69 Lab Results: Results Past 24 Hours Test 08/08/17 16:50 08/09/17 05:47 08/09/17 11:33 Range/Units White Blood Count 8.86 4.8-10.8 K/uL Red Blood Count 4.57 4.2-5.4 M/uL Hemoglobin 15.3 12.0-16.0 g/dL Hematocrit 43.4 37-47 % Mean Corpuscular Volume 95.0 80-100 fL Mean Corpuscular Hemoglobin 33.5 25-34 pg Mean Corpuscular Hemoglobin Concent 35.3 32-36 g/dl Platelet Count 269 130-400 K/uL Mean Platelet Volume 9.8 7.4-10.4 fL Neutrophils (%) (Auto) 54.5 % Lymphocytes (%) (Auto) 31.0 % Monocytes (%) (Auto) 9.5 % Eosinophils (%) (Auto) 4.5 % Basophils (%) (Auto) 0.3 % Neutrophils # (Auto) 4.96 1.4-6.5 K/uL Lymphocytes # (Auto) 2.83 1.2-3.4 K/uL Monocytes # (Auto) 0.87 0.11-0.59 K/uL Eosinophils # (Auto) 0.41 0-0.5 K/uL Basophils # (Auto) 0.03 0-0.2 K/uL RDW Standard Deviation 44.2 36.4-46.3 fL RDW Coefficient of Variation 12.8 11.5-14.5 % Immature Granulocyte % (Auto) 0.2 % Immature Granulocyte # (Auto) 0.02 0.00-0.02 K/uL Red Blood Cell Morphology Unremarkable Prothrombin Time 10.6 9.0-12.0 SECONDS Prothromb Time International Ratio 1.0 0.9-1.1 Sodium Level 137 136-145 mmol/L Potassium Level 4.1 3.5-5.1 mmol/L Chloride Level 101 98-107 mmol/L Carbon Dioxide Level 31 21-32 mmol/L Anion Gap 5.0 3-11 mmol/L Blood Urea Nitrogen 26 7-18 mg/dl Creatinine 1.20 0.60-1.20 mg/dl Est Creatinine Clear Calc Drug Dose 58.8 ml/min Estimated GFR () 59.3 Estimated GFR (Non- 51.2 BUN/Creatinine Ratio 21.8 10-20 Random Glucose 95 70-99 mg/dl Calcium Level 9.7 8.5-10.1 mg/dl Total Creatine Kinase 98 83 85 26-192 U/L Creatine Kinase MB 0.8 1.2 1.0 0.5-3.6 ng/ml Creatine Kinase MB Ratio 0.8 1.4 1.2 0-3.0 Troponin I < 0.015 < 0.015 < 0.015 0-0.045 ng/ml Hepatitis C Antibody Screen NEG NEG
--- NOTE | 2017-08-09 16:50 | Discharge Instructions ---
Discharge Instructions Date of Service Aug 09, 2017. Admission Reason for Admission: Chest Pain Discharge Discharge Diagnosis / Problem: atypical chest pain, lung nodule Discharge Goals Goal(s): Decrease discomfort Activity Recommendations Activity Limitations: resume your previous activity . Instructions / Follow-Up Instructions / Follow-Up CXR Cardiomediastinal silhouette normal. Lungs and pleural spaces clear. Osseous structures normal. Upper abdomen normal. CTA chest Clinic Coordinator topogram: Unremarkable. Pulmonary vasculature: The study is adequate for assessment of the pulmonary vascular tree. No filling defect within the pulmonary arteries to suggest embolus. Main pulmonary artery is not enlarged. No flattening of the interventricular septum. No intracardiac intracardiac filling defect. No reflux of contrast into the hepatic veins. Remaining chest: On soft tissue windows, postsurgical changes of right thyroid lobectomy. No axillary, supraclavicular, hilar, or mediastinal lymphadenopathy. Normal aorta. Normal heart size. No pericardial or pleural effusion. Cholecystectomy clips noted. On lung windows, minimal dependent changes likely atelectasis. Solid subpleural 3 mm nodule in the right middle lobe (series 2 image 42). Airways patent. On bone windows, mild degenerative changes of the thoracic spine. IMPRESSION: 1. No evidence of pulmonary embolus. No acute intrathoracic pathology. 2. Solitary 3 mm solid pulmonary nodule in the right middle lobe. Follow-up per Adelina Society 2017 recommendations below. Please refer to below summary of Fleischner Society 2017 recommendations for follow-up of incidental CT nodules (H Nori et al. Guidelines for management of incidental pulmonary nodules detected on CT images: From the Fleischner Society 2017. Radiology 2017; 284: 228-243.) SOLID NODULES Single nodule; size < 6 mm * Low risk patients: No routine follow-up * High risk patients: Optional CT at 12 months Single nodule; size 6-8 mm * Low risk patients: CT at 6-12 months, then consider CT at 18-24 months * High risk patients: CT at 6-12 months, then at 18-24 months Single nodule; size > 8 mm * Either low or high risk patients: Considered CT at 3 months, PET/CT, or tissue sampling Multiple nodules; size < 6 mm * Low risk patients: No routine follow up * High risk patients: Optional CT at 12 months Multiple nodules; size 6-8 mm * Low risk patients: CT at 3-6 months, then consider CT at 18-24 months * High risk patients: CT at 3-6 months, then at 18-24 months Multiple nodules; size > 8 mm * Low risk patients: CT at 3-6 months, then consider at 18-24 months * High risk patients: CT at 3-6 months, then at 18-24 months Note: These guidelines apply to incidental nodules. These guidelines do not apply to patients younger than 35 years, immunocompromised patients, or patients with cancer. * Low risk patients: Minimal or absent history of smoking and/or other known risk factors * High risk patients: History of smoking, exposure to other carcinogens, emphysema, fibrosis, upper lobe location, family history of lung cancer, etc. * If a nodule up to 8 mm is partly solid or is ground glass, further follow-up is required after 24 months to exclude possible slow growing adenocarcinoma. SUBSOLID NODULES Single ground-glass nodule * Nodule size < 6 mm: No routine follow-up * Nodule size > or = 6 mm: CT at 6-12 months to confirm persistence, then CT every 2 years until 5 years Single part-solid nodule * Nodule size < 6 mm: No routine follow-up * Nodules size > or = 6 mm: CT at 3-6 months to confirm persistence. If unchanged and solid component remains < 6 mm, annual CT should be performed for 5 years Multiple nodules * Nodule size < 6 mm: CT at 3-6 months. If stable, consider CT at 2 and 4 years. * Nodules size > or = 6 mm: CT at 3-6 months. Subsequent management based on the most suspicious nodule(s) Stress Test performed by cardiology 08/09/17 full report pending, was informed by promotional model conducting and interpreting stress test that there are no significant cardiac findings that will keep patient in hospital for further cardiac risk stratification. Diagnosis: 1) Atypical chest pain without cardiac causes; 2) Incidental Solitary 3 mm solid pulmonary nodule in the right middle lobe in a patient who denies smoking history Disposition: Discharge to home with no further changes to home medications. Follow up primary care 08/16/2017 3:00 PM Landry Leonardo MD Internal Medicine [facility]. Will defer to primary care doctor on whether patient requires repeat lung imaging in the future for the lung nodule. Current Hospital Diet Patient's current hospital diet: AHA Diet (Heart Healthy) Discharge Diet Recommended Diet: Regular Diet Pending Studies Studies pending at discharge: no Laboratory Results 08/08/17 16:50 Red Blood Count 4.57, Mean Corpuscular Volume 95.0, Mean Corpuscular Hemoglobin 33.5, Mean Corpuscular Hemoglobin Concent 35.3, Mean Platelet Volume 9.8, Neutrophils (%) (Auto) 54.5, Lymphocytes (%) (Auto) 31.0, Monocytes (%) (Auto) 9.5, Eosinophils (%) (Auto) 4.5, Basophils (%) (Auto) 0.3, Neutrophils # (Auto) 4.96, Lymphocytes # (Auto) 2.83, Monocytes # (Auto) 0.87, Eosinophils # (Auto) 0.41, Basophils # (Auto) 0.03 08/08/17 16:50 Test 08/08/17 16:50 08/09/17 11:33 White Blood Count 8.86 K/uL (4.8-10.8) Red Blood Count 4.57 M/uL (4.2-5.4) Hemoglobin 15.3 g/dL (12.0-16.0) Hematocrit 43.4 % (37-47) Mean Corpuscular Volume 95.0 fL (80-100) Mean Corpuscular Hemoglobin 33.5 pg (25-34) Mean Corpuscular Hemoglobin Concent 35.3 g/dl (32-36) Platelet Count 269 K/uL (130-400) Mean Platelet Volume 9.8 fL (7.4-10.4) Neutrophils (%) (Auto) 54.5 % Lymphocytes (%) (Auto) 31.0 % Monocytes (%) (Auto) 9.5 % Eosinophils (%) (Auto) 4.5 % Basophils (%) (Auto) 0.3 % Neutrophils # (Auto) 4.96 K/uL (1.4-6.5) Lymphocytes # (Auto) 2.83 K/uL (1.2-3.4) Monocytes # (Auto) 0.87 K/uL (0.11-0.59) Eosinophils # (Auto) 0.41 K/uL (0-0.5) Basophils # (Auto) 0.03 K/uL (0-0.2) RDW Standard Deviation 44.2 fL (36.4-46.3) RDW Coefficient of Variation 12.8 % (11.5-14.5) Immature Granulocyte % (Auto) 0.2 % Immature Granulocyte # (Auto) 0.02 K/uL (0.00-0.02) Red Blood Cell Morphology Unremarkable Prothrombin Time 10.6 SECONDS (9.0-12.0) Prothromb Time International Ratio 1.0 (0.9-1.1) Anion Gap 5.0 mmol/L (3-11) Est Creatinine Clear Calc Drug Dose 58.8 ml/min Estimated GFR () 59.3 Estimated GFR (Non- 51.2 BUN/Creatinine Ratio 21.8 (10-20) Calcium Level 9.7 mg/dl (8.5-10.1) Hepatitis C Antibody Screen NEG (NEG) Total Creatine Kinase 85 U/L (26-192) Creatine Kinase MB 1.0 ng/ml (0.5-3.6) Creatine Kinase MB Ratio 1.2 (0-3.0) Troponin I < 0.015 ng/ml (0-0.045) Medical Emergencies . Who to Call and When: Medical Emergencies: If at any time you feel your situation is an emergency, please call 911 immediately. . Non-Emergent Contact Non-Emergency issues call your: Primary Care Provider . . "Provider Documentation" section prepared by Wild Torres. . VTE Core Measure Inpt VTE Proph given/why not?: Enoxaparin (Lovenox)SQ
--- NOTE | 2017-08-09 16:53 | Discharge Summary ---
Discharge Summary Date of Service Aug 09, 2017. Discharge Summary Admission Date: Aug 08, 2017 at 19:27 Discharge Date: Aug 09, 2017 Discharge Disposition: Home Principal Diagnosis: 1) Atypical chest pain without cardiac causes; 2) Incidental Solitary 3 mm solid pulmonary nodule in the right middle lobe in a patient who denies smoking history Medication Reconciliation Continued Medications: Aspirin (Aspirin Ec) 81 Mg Tab 81 MG PO QAM Biotin (Biotin Maximum Strength) 10,000 Mcg Tab 45778 MCG PO QAM Cholecalciferol (Vitamin D3) 1,000 Unit Tab 1000 INTER.UNIT PO QAM, TAB Clindamycin Hcl (Cleocin) 150 Mg Cap 150 MG PO QID for 10 Days, #40 CAP PRESCRIBED 08/04/2017, TAKE DIRECTED UNTIL GONE Levothyroxine Sodium (Levothyroxine Sodium) 100 Mcg Tab 100 MG PO QAM, TAB Magnesium Oxide (Mg Supplement (Magnesium) 400 Mg Cap 1200 MG PO QAM Multivitamin (Multivitamin) Tab 1 TAB PO QAM Spironolactone (Aldactone) 100 Mg Tab 100 MG PO QAM Admission Information HPI (per Admitting provider): 52 yo F presents with chest pain that is worse with taking a deep breath. The pain has been intermittent since Fri morning and started after some nausea that she had. The pain appears to have gotten somewhat worse but doesn't seem to change with food, changes in position, or exertion. She has not been limited in her activities, but has noted that she has not been doing as much as she normally does. She describes the pain as sharp and located behind her R and L clavicles with the L side moving through to her back. She has had some associated diaphoresis with the pain and the nausea has not persisted but was there initially. She also reports some intermittent lightheadedness. She takes an aspirin daily. She does not have a history of tobacco use or hypertension; she takes spironolactone for control of hirsutism. She has a family history of her father having his first MS at age 50 yrs and dying from an MS at 62 yo. She denies a h/o chest pain except for once last year--an EKG was done at the time. She has never had a stress test in the past. She reports having pain from a toothache and was put on Cleocin starting Th. She states she has some pain from the toothache but denies fevers and chills. She takes Motrin PRN. There are plans to have the tooth pulled later this week. CTA was negative for PE in the ER. Physical Exam (per Admitting): General Appearance: WD/WN, no apparent distress Head: normocephalic, atraumatic Eyes: normal inspection, PERRL, sclerae normal ENT: hearing grossly normal, pharynx normal Neck: supple, no adenopathy, no JVD, trachea midline Respiratory/Chest: lungs clear, normal breath sounds, no respiratory distress, no accessory muscle use, + pertinent finding (mild TTP on R anterior chest wall) Cardiovascular: regular rate, rhythm, no edema, no gallop, no JVD, no murmur , normal peripheral pulses Abdomen/GI: normal bowel sounds, non tender, soft Back: normal inspection Extremities/Musculoskelatal: normal inspection Neurologic/Psych: no motor/sensory deficits, alert, normal mood/affect, oriented x 3 Skin: normal color, warm/dry, no rash Hospital Course CXR Cardiomediastinal silhouette normal. Lungs and pleural spaces clear. Osseous structures normal. Upper abdomen normal. CTA chest Sweeper Brush Maker Machine topogram: Unremarkable. Pulmonary vasculature: The study is adequate for assessment of the pulmonary vascular tree. No filling defect within the pulmonary arteries to suggest embolus. Main pulmonary artery is not enlarged. No flattening of the interventricular septum. No intracardiac intracardiac filling defect. No reflux of contrast into the hepatic veins. Remaining chest: On soft tissue windows, postsurgical changes of right thyroid lobectomy. No axillary, supraclavicular, hilar, or mediastinal lymphadenopathy. Normal aorta. Normal heart size. No pericardial or pleural effusion. Cholecystectomy clips noted. On lung windows, minimal dependent changes likely atelectasis. Solid subpleural 3 mm nodule in the right middle lobe (series 2 image 42). Airways patent. On bone windows, mild degenerative changes of the thoracic spine. IMPRESSION: 1. No evidence of pulmonary embolus. No acute intrathoracic pathology. 2. Solitary 3 mm solid pulmonary nodule in the right middle lobe. Follow-up per Adelina Society 2017 recommendations below. Please refer to below summary of Fleischner Society 2017 recommendations for follow-up of incidental CT nodules (H Nori et al. Guidelines for management of incidental pulmonary nodules detected on CT images: From the Fleischner Society 2017. Radiology 2017; 284: 228-243.) SOLID NODULES Single nodule; size < 6 mm * Low risk patients: No routine follow-up * High risk patients: Optional CT at 12 months Single nodule; size 6-8 mm * Low risk patients: CT at 6-12 months, then consider CT at 18-24 months * High risk patients: CT at 6-12 months, then at 18-24 months Single nodule; size > 8 mm * Either low or high risk patients: Considered CT at 3 months, PET/CT, or tissue sampling Multiple nodules; size < 6 mm * Low risk patients: No routine follow up * High risk patients: Optional CT at 12 months Multiple nodules; size 6-8 mm * Low risk patients: CT at 3-6 months, then consider CT at 18-24 months * High risk patients: CT at 3-6 months, then at 18-24 months Multiple nodules; size > 8 mm * Low risk patients: CT at 3-6 months, then consider at 18-24 months * High risk patients: CT at 3-6 months, then at 18-24 months Note: These guidelines apply to incidental nodules. These guidelines do not apply to patients younger than 35 years, immunocompromised patients, or patients with cancer. * Low risk patients: Minimal or absent history of smoking and/or other known risk factors * High risk patients: History of smoking, exposure to other carcinogens, emphysema, fibrosis, upper lobe location, family history of lung cancer, etc. * If a nodule up to 8 mm is partly solid or is ground glass, further follow-up is required after 24 months to exclude possible slow growing adenocarcinoma. SUBSOLID NODULES Single ground-glass nodule * Nodule size < 6 mm: No routine follow-up * Nodule size > or = 6 mm: CT at 6-12 months to confirm persistence, then CT every 2 years until 5 years Single part-solid nodule * Nodule size < 6 mm: No routine follow-up * Nodules size > or = 6 mm: CT at 3-6 months to confirm persistence. If unchanged and solid component remains < 6 mm, annual CT should be performed for 5 years Multiple nodules * Nodule size < 6 mm: CT at 3-6 months. If stable, consider CT at 2 and 4 years. * Nodules size > or = 6 mm: CT at 3-6 months. Subsequent management based on the most suspicious nodule(s) Stress Test performed by cardiology 08/09/17 full report pending, was informed by artificial intelligence specialist conducting and interpreting stress test that there are no significant cardiac findings that will keep patient in hospital for further cardiac risk stratification. Diagnosis: 1) Atypical chest pain without cardiac causes; 2) Incidental Solitary 3 mm solid pulmonary nodule in the right middle lobe in a patient who denies smoking history Disposition: Discharge to home with no further changes to home medications. Follow up primary care 08/16/2017 3:00 PM Landry Leonardo MD Internal Medicine [facility]. Will defer to primary care doctor on whether patient requires repeat lung imaging in the future for the lung nodule. Total time spent on discharge = This includes examination of the patient, discharge planning, medication reconciliation, and communication with other providers. Discharge Instructions see above
[2017-08-09 16:57] VITALS: BP 100/66; PULSE 68; TEMP 36.8; O2SAT 95
--- NOTE | 2017-08-09 17:15 | EXERCISE STRESS ECHO ---
*NOTICE TO RECEIVING LIBERTARIAN AGENCY This information is strictly Confidential and protected under [place] law. [place] law prohibits you from making any further disclosure of this information unless further disclosure is expressly permitted by the written consent of the person to whom it pertains or is authorized by law. A general authorization for the release of medical or other information is not sufficient for this purpose. Hospital accepts no responsibility if the information is made available to any other person, INCLUDING THE PATIENT. Interpretation Summary * Name: ABDIRIZAK SHERMAN Study Date: 08/09/2017 02:46 PM BP: 155/61 mmHg * Patient Location: [facility]\S\N282\S\1 HR: 100 * : 1965 (M/d/yyyy) Gender: Female Height: 66 in * Age: 52 yrs Ethnicity: CA Weight: 187 lb * Ordering Physician: Wild Torres * Referring Physician: Self, Referred * Performed By: Sadaf Khan * * Reason For Study: CAD * BSA: 1.9 m2 * -- Conclusions -- * Nonischemic exercise stress echocardiogram. * No arrhythmias. * Normal BP and HR response to exercise. * At rest, normal LV chamber size with mild concentric LVH. * Normal LV systolic function, EF 55-60%. * No segmental left ventricular wall motion abnormalities are noted. * Grade I diastolic dysfunction. * No significant valvular pathology. Procedure Details * A contrast injection of Definity was performed to improve assessment of LV function. * Contrast was injected into an intravenous site in the left arm. * One vial of Definity ultrasound contrast was diluted in normal saline to a total volume of 10 ml. A total of '4' ml of solution was administered during imaging. * Lot # [id number] of Definity utilized for procedure. * Expiration date . * The attending nurse who injected the contrast agent was BELLA Blanchard. * ECHOEX, CPT #[id number] Left Ventricle * The left ventricle is normal in size. * There is normal left ventricular wall thickness. * Ejection Fraction = 55-60%. * Left ventricular systolic function is normal. * No segmental left ventricular wall motion abnormalities are noted. * Resting wall motion: Normal. Stress wall motion: Appropriate increase in Left ventricular systolic function and decrease in cavity size. No stress induced segmental wall motion abnormalities. Right Ventricle * The right ventricular cavity size is normal (basal dimension <4.2 cm in right ventricular apical 4-chamber view). * The right ventricular systolic function is normal as assessed by tricuspid annular plane systolic excursion (TAPSE) (normal >1.5 cm). Atria * The left atrial size is normal. * Right atrial size is normal. * No ASD detected; PFO is not assessed. Mitral Valve * The mitral valve is normal in structure and function. Tricuspid Valve * The tricuspid valve is normal in structure and function. Aortic Valve * The aortic valve is normal in structure and function. Pulmonic Valve * The pulmonary valve is not well seen, but the Doppler examination is normal without significant regurgitation or stenosis. Great Vessels * The aortic root is normal size. Pericardium * There is no pericardial effusion. Stress Parameters * Normal baseline electrocardiogram. * Stress ECG: No ST changes. No arrhythmias. * No arrhythmia were noted with stress. * The stress portion of this study was personally supervised by the undersigned interpreting physician. * Rest heart rate was '100' BPM. * Rest blood pressure was '155/61' * Maximum heart rate achieved was 144 bpm. * Maximum heart rate was 86 % of maximum age-predicted heart rate. * Maximum blood pressure was '196/65' * Total exercise time was '7:21' * Maximum exercise MET level achieved was '9.00' METS * Maximum treadmill speed was '3.40' miles per hour. * Maximum treadmill elevation was '14.00'% grade. Left Ventricular Diastolic Function * Grade I diastolic dysfunction, (abnormal relaxation pattern). MMode 2D Measurements and Calculations IVSd 0.95 cm IVSs 1.2 cm LVIDd 4.5 cm LVIDs 2.8 cm LVPWd 0.75 cm LVPWs 1.5 cm IVS/LVPW 1.3 FS 37.5 % EDV(Teich) 91.2 ml ESV(Teich) 29.4 ml EF(Teich) 67.7 % EDV(cubed) 89.5 ml ESV(cubed) 21.8 ml EF(cubed) 75.6 % % IVS thick 30.0 % % LVPW thick 94.4 % LV mass(C)d 122.0 grams LV mass(C)dI 62.8 grams/m\S\2 LV mass(C)s 120.2 grams LV mass(C)sI 61.9 grams/m\S\2 SV(Teich) 61.8 ml SI(Teich) 31.8 ml/m\S\2 SV(cubed) 67.7 ml SI(cubed) 34.8 ml/m\S\2 Ao root diam 2.4 cm Ao root area 4.7 cm\S\2 ACS 1.4 cm LA dimension 3.2 cm LA/Ao 1.3 LVAd ap4 22.2 cm\S\2 LVLd ap4 6.9 cm EDV(MOD-sp4) 61.5 ml EDV(sp4-el) 61.2 ml LVAs ap4 11.3 cm\S\2 LVLs ap4 5.5 cm ESV(MOD-sp4) 20.3 ml ESV(sp4-el) 19.6 ml EF(MOD-sp4) 66.9 % EF(sp4-el) 68.0 % LVAd ap2 15.4 cm\S\2 LVLd ap2 6.3 cm EDV(MOD-sp2) 34.0 ml EDV(sp2-el) 31.9 ml LVAs ap2 9.3 cm\S\2 LVLs ap2 5.3 cm ESV(MOD-sp2) 15.4 ml ESV(sp2-el) 13.8 ml EF(MOD-sp2) 54.7 % EF(sp2-el) 56.8 % LVLd %diff -8.02 % EDV(MOD-bp) 46.6 ml LVLs %diff -3.02 % ESV(MOD-bp) 17.7 ml EF(MOD-bp) 62.1 % SV(MOD-sp4) 41.2 ml SI(MOD-sp4) 21.2 ml/m\S\2 SV(MOD-sp2) 18.6 ml SI(MOD-sp2) 9.6 ml/m\S\2 SV(MOD-bp) 28.9 ml SI(MOD-bp) 14.9 ml/m\S\2 SV(sp4-el) 41.6 ml SI(sp4-el) 21.4 ml/m\S\2 SV(sp2-el) 18.1 ml SI(sp2-el) 9.3 ml/m\S\2 Doppler Measurements and Calculations MV E max chica 52.5 cm/sec MV A max chica 51.0 cm/sec MV E/A 1.0 MV dec time 0.27 sec Ao V2 max 102.7 cm/sec Ao max PG 4.2 mmHg Ao max PG (full) 1.8 mmHg LV V1 max PG 2.5 mmHg LV V1 max 78.5 cm/sec PA V2 max 77.6 cm/sec PA max PG 2.4 mmHg PI max chica 107.0 cm/sec PI max PG 4.6 mmHg PI dec slope 139.8 cm/sec\S\2 PI P1/2t 224.2 msec
== END 2017-08-09 17:25 | disposition home or self-care (01) ==
LOC: C.EDB 16:27 → C.MED 19:27 → ENRESERV 20:21
PROVIDERS: ADMIT Hospitalist; ATTEND Hospitalist
DX: R07.89 Other chest pain (principal); R91.1 Solitary pulmonary nodule; Z82.49 Family history of ischemic heart disease and other diseases of the circulatory system; Z83.3 Family history of diabetes mellitus; Z79.82 Long term (current) use of aspirin; L68.0 Hirsutism; Z98.51 Tubal ligation status; Z90.49 Acquired absence of other specified parts of digestive tract; Z90.89 Acquired absence of other organs; E03.9 Hypothyroidism, unspecified